=== PATIENT | male | born 2000 | race Caucasian/White ===

== ENCOUNTER 2023-12-26 20:19 | Emergency (ER) | payer SELFPAY ==
[2023-12-26 20:25] VITALS: BP 161/90; PULSE 88; RESP 16; TEMP 36.8; O2SAT 98; BMI 23.7
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
[2023-12-26 21:27] VITALS: BP 161/90; PULSE 88; RESP 16; TEMP 36.8; O2SAT 98
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
== END 2023-12-26 21:29 | disposition left against medical advice (07) ==
PROVIDERS: Emergency Provider General Practice
DX: M79.642 Pain in left hand (principal); Z53.29 Procedure and treatment not carried out because of patient's decision for other reasons
CPT/HCPCS: 99281

== ENCOUNTER 2024-06-03 12:13 | Emergency (ER) | payer SELFPAY ==
[2024-06-03 12:20] VITALS: BP 132/92; PULSE 100; TEMP 36.4; O2SAT 96; BMI 23.7
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
[2024-06-03] MEDS: iohexol 350 mg/mL 500 mL Btl (per mL) IV (14:12)
[2024-06-03 14:33] VITALS: BP 123/71; PULSE 73; O2SAT 95
[2024-06-03] MEDS: ketorolac 30 mg/mL INJ IVP (14:58)
[2024-06-03 15:00] VITALS: BP 122/74; PULSE 86; RESP 16; O2SAT 98
--- NOTE | 2024-06-03 15:13 | PC.NURSE ---
pt face cleaned with ns and gauze to remove dried blood from lip and mouth, small 0.5cm lac noted to inner upper lip, approximate 2.5cm lac to lower outer lip and small 0.5cm lac to inner lower lip, all cleansed and willem blackman notified.
[2024-06-03 15:30] VITALS: BP 122/74; PULSE 74; O2SAT 98
== END 2024-06-03 15:31 | disposition home or self-care (01) ==
PROVIDERS: Emergency Provider Physician Assistant
DX: S01.81XA Laceration without foreign body of other part of head, initial encounter (principal); S20.212A Contusion of left front wall of thorax, initial encounter; V89.2XXA Person injured in unspecified motor-vehicle accident, traffic, initial encounter
CPT/HCPCS: 12011; 70450; 71260; 72125; 74177; 96374; 99285; J1885

== ENCOUNTER 2024-06-30 18:32 | Emergency (ER) | payer SELFPAY ==
[2024-06-30 18:41] VITALS: BP 150/73; PULSE 92; RESP 16; TEMP 36.6; O2SAT 99; BMI 23.4
[2024-06-30 19:24] LABS: Influenza A by IFA positive (Negative); Influenza B by IFA negative (Negative)
[2024-06-30 19:36] LABS: SARS Covid-2 Antigen negative (Negative)
== END 2024-06-30 20:02 | disposition left against medical advice (07) ==
PROVIDERS: Emergency Medicine; Emergency Provider Family Medicine
DX: Z53.1 Procedure and treatment not carried out because of patient's decision for reasons of belief and group pressure (principal)
CPT/HCPCS: 87426; 87804

== ENCOUNTER 2024-09-26 19:19 | Emergency (ER) | payer SELFPAY ==
[2024-09-26 19:35] VITALS: BP 130/70; PULSE 87; RESP 16; TEMP 36.6; O2SAT 98; BMI 23.0
[2024-09-26 20:20] LABS: Basophils # 0.1 10^3/uL (0.0-0.1); Basophils % 0.8 %; Eosinophils # 0.2 10^3/uL (0.0-0.8); Eosinophils % 1.9 %; Hematocrit 43.2 % (37-53); Lymphocytes # 3.6 10^3/uL (0.8-4.8); Lymphocytes % 35.7 %; Mean Corpuscular HGB Conc 33.8 g/dL (30-55); Mean Corpuscular Hemoglobin 30.6 pg (27-33); Mean Corpuscular Volume 90.6 fl (82-101); Mean Platelet Volume 9.2 fL (7.4-10.4); Neutrophils # 5.18 10^3/uL (1.8-7.7); Neutrophils % 51.4 %; Nucleated Red Blood Cells % 0 %; Platelet Count 334 10^3/cmm (157-399); Red Blood Count 4.77 10^6/uL (3.85-5.65); Red Cell Distribution Width 12.4 % (12.1-15.1); White Blood Count 10.07 10^3/uL (3.29-11.43)
--- NOTE | 2024-09-26 20:22 | CTR_ITS ---
PROCEDURE INFORMATION: Exam: CT Head Without Contrast Exam date and time: 09/26/2024 8:34 PM Age: 23 years old Clinical indication: Other: Seizure; Reported seziure activity. Patient lethargic upon exam. ; Additional info: Sz TECHNIQUE: Imaging protocol: Computed tomography of the head without contrast. Axial, coronal and sagittal reformatted images were created and reviewed. Radiation optimization: All CT scans at this facility use at least one of these dose optimization techniques: automated exposure control; mA and/or kV adjustment per patient size (includes targeted exams where dose is matched to clinical indication); or iterative reconstruction. COMPARISON: CT head wo con* [id number] 06/03/2024 2:05 PM RADIATION DOSE METRICS: Total DLP (mGy-cm): 1050.24 FINDINGS: Brain: No CT evidence of acute intracranial hemorrhage or acute territorial infarction. No significant mass effect or midline shift. Basal cisterns patent. Cerebral ventricles: Normal in size and configuration. Paranasal sinuses: Polypoid frontal, [id number]-left ethmoid and right sphenoid sinus mucosal thickening. No air-fluid levels. Mastoid air cells: Grossly unremarkable. Bones: Unremarkable. No acute fracture. Soft tissues: Grossly unremarkable. CT/CT head wo con* [id number] [address]PRESSION: 1. No CT evidence of acute intracranial pathology. 2. Additional findings, as above.
[2024-09-26 20:32] LABS: Bacteria Urine None Seen /hpf; Hyaline Casts Urine 0-4 /lpf; RBC Urine 0-2 /hpf (0-2); Squamous Epithelial Cell Urine 0-5 /hpf (0-5); WBC Urine 0-5 /hpf (0-5)
[2024-09-26 20:34] LABS: Alanine Aminotransferase 15 U/L (0-41); Albumin Level 4.7 g/dL (3.5-5.2); Alkaline Phosphatase 95 U/L (40-130); Aspartate Amino Transferase 19 U/L (0-40); Blood Urea Nitrogen 15 mg/dL (6-20); Calcium 9.7 mg/dL (8.5-10.5); Carbon Dioxide 24 mmol/L (22-29); Chloride 107 mmol/L (98-107); Creatinine Clr Calc Pharmacy 137.3689; Globulin 2.5 g/dL (1.3-4.6); Glomerular Filtration Rate 102.8 mL/min (90-130); Glucose 74 mg/dL (65-115); Osmolality Calculated 295 mOsm/kg (285-295); Sodium 143 mmol/L (136-145); Total Bilirubin 0.5 mg/dL (0.15-1.2); Total Protein 7.2 g/dL (6.6-8.7)
[2024-09-26 20:37] LABS: Add Urine Culture? No; Amphetamines Screen Urine Positive (Negative); Barbiturates Screen Urine Negative (Negative); Benzodiazepines Screen Urine Negative (Negative); Bilirubin Urine Neg (Negative); Blood Urine Neg (Negative); Cocaine Screen Urine Negative (Negative); Glucose Urine UA Norm (Normal); Ketones Urine Negative (Negative); Leukocyte Esterase Urine Negative (Negative); Nitrate Urine Negative (Negative); Opiate Screen Urine Negative (Negative); PCP Screen Urine Negative (Negative); Protein Urine Trace (Negative); THC Screen Urine Negative (Negative); Urine Appearance Clear (CLEAR); Urine Color Yellow (Yellow); Urobilinogen Urine Norm (Negative); pH Urine 5 (5-7)
[2024-09-26 20:44] VITALS: BP 119/70; PULSE 74; RESP 16; O2SAT 95
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
[2024-09-26] MEDS: levETIRAcetam 1,000 MG/100 ML PREMIX 400 MG IV (20:52)
[2024-09-26 21:00] VITALS: BP 129/73; PULSE 73; RESP 18; O2SAT 96
[2024-09-26 21:04] LABS: Alcohol Level 12 mg/dL (0-10); Magnesium 2.2 mg/dL (1.7-2.3); Phosphorus 4.1 mg/dL (2.5-4.5)
[2024-09-26 21:41] VITALS: BP 119/72; PULSE 83; RESP 14; O2SAT 96
== END 2024-09-26 21:40 | disposition home or self-care (01) ==
PROVIDERS: Emergency Medicine; Emergency Provider Emergency Medicine
DX: G40.89 Other seizures (principal)
CPT/HCPCS: 70450; 80053; 80306; 80307; 81001; 83735; 84100; 85025; 96374; 99285; J1953

== ENCOUNTER 2024-10-11 10:24 | Emergency (ER) | payer SELFPAY ==
[2024-10-11 10:51] VITALS: BP 135/80; PULSE 92; RESP 16; TEMP 36.4; O2SAT 98; BMI 23.7
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
== END 2024-10-11 13:39 | disposition left against medical advice (07) ==
PROVIDERS: Emergency Provider Family Medicine
DX: M25.561 Pain in right knee (principal); M54.9 Dorsalgia, unspecified; Z04.1 Encounter for examination and observation following transport accident
CPT/HCPCS: 70450; 72125; 72131; 73562